=== PATIENT | female | born 1995 | race American Indian/Alaskan Native ===

== ENCOUNTER 2017-03-27 09:07 | Inpatient (IN) | payer MEDICAID, OTHER ==
[2017-03-27] MEDS ORDERED: LACTATED RINGERS 1,000 ML ONE ×2 (10:04→10:38)
--- NOTE | 2017-03-27 10:37 | History and Physical Report ---
History of Present Illness Date of examination: 03/27/17 Date of admission: 03/27/17 09:08 Chief complaint: contractions History of present illness: 22y/o @ 40+0 weeks presents in active labor with advanced cervical dilation of 8cm. She denies leakage of fluid. GBS negative. Past History Past Medical History: asthma Past Surgical History: no surgical history [employer] History: chlamydia Social history: single - Obstetrical History Expected Date of Delivery: 03/27/17 Actual Gestation: 40 Week(s) 0 Day(s) : 1 Para: 0 Hx # Term Pregnancies: 0 Number of Pregnancies: 0 Spontaneous Abortions: 0 Induced : 0 Number of Living Children: 0 Medications and Allergies Allergies Allergy/AdvReac Type Severity Reaction Status Date / Time No Known Allergies Allergy Verified 03/27/17 09:11 Home Medications Medication Instructions Recorded Confirmed Last Taken Type Vit-Fe Fumar-FA [ 1 tab PO QDAY 03/27/17 03/27/17 03/26/17 09: 00 History Vitamin] Review of Systems All systems: negative Genitourinary: pelvic pain, contractions, no leakage of fluid - Vital Signs Vital signs: Vital Signs Temp Resp 97.4 F L 20 03/27/17 09:14 03/27/17 09:14 Temp Pulse Resp BP Pulse Ox 97.4 F L 100 H 20 123/91 96 03/27/17 09:14 03/27/17 09:57 03/27/17 09:14 03/27/17 09:57 03/27/17 09:52 - Physical Exam Breasts: Positive: deferred Cardiovascular: Regular rate Lungs: Positive: Clear to auscultation Abdomen: Positive: normal appearance, soft Results Result Diagrams: 03/27/17 09:40 All other labs normal. Assessment and Plan - Patient Problems (1) Active labor at term Current Visit: Yes Status: Acute Plan to address problem: admit to L&D
[2017-03-27] MEDS ORDERED: LACTATED RINGERS 1,000 ML IV ONE (11:00)
[2017-03-27] MEDS ORDERED: SUBLIMAZE IV ONE (11:00)
[2017-03-27] MEDS ORDERED: SUBLIMAZE IV PRN (12:10)
[2017-03-27] MEDS ORDERED: NARCAN 2 MG/2 ML IV PRN (12:41)
[2017-03-27] MEDS ORDERED: ePHEDrine SULFATE IV PRN (12:41)
--- NOTE | 2017-03-27 12:41 | Anesthesia Consultation ---
Anesthesia Consult and Med Hx Date of service: 03/27/17 - Airway Anesthetic Teeth Evaluation: Good ROM Head & Neck: Adequate Mental/Hyoid Distance: Adequate Mallampati Class: Class II Intubation Access Assessment: Probably Good - Pulmonary Exam CTA: Yes - Cardiac Exam Cardiac Exam: RRR - Pre-Operative Health Status ASA Pre-Surgery Classification: ASA2 Proposed Anesthetic Plan: Epidural - Pulmonary Hx Asthma: Yes (albuteral PRN) COPD: No Hx Pneumonia: No - Cardiovascular System Hx Hypertension: No - Central Nervous System Hx Seizures: No Hx Psychiatric Problems: No - Endocrine Hx Renal Disease: No Hx End Stage Renal Disease: No Hx Hypothyroidism: No Hx Hyperthyroidism: No - Hematic Hx Anemia: No Hx Sickle Cell Disease: No
[2017-03-27 12:53] LABS: Basophils % (Auto) 0.5 % (0.0-1.8); Eosinophils % (Auto) 0.8 % (0.0-4.3); Hematocrit 36.9 % (30.3-42.9); Hemoglobin 12.3 gm/dl (10.1-14.3); Mean Corpuscular HGB Conc 33 % (30-34); Mean Corpuscular Hemoglobin 31 pg (28-32); Mean Corpuscular Volume 92 fl (79-97); Platelet Count 285 K/mm3 (140-440); Red Blood Count 4.03 M/mm3 (3.65-5.03); Red Cell Distribution Width 13.6 % (13.2-15.2); White Blood Count 10.7 K/mm3 (4.5-11.0)
[2017-03-27] MEDS ORDERED: PITOCin/NS 30 UNIT/500ML 30 UNITS/500 ML BAG IV SCH (13:00)
[2017-03-27] MEDS ORDERED: fentaNYL-BUPIV 2 MCG/ML-0.125% 200 MCG/100 ML BAG EPIDURAL SCH (13:00)
[2017-03-27] MEDS ORDERED: MINERAL OIL PO ONE (15:07)
[2017-03-27] MEDS ORDERED: MINERAL OIL ONE ×2 (15:07→17:10)
--- NOTE | 2017-03-27 15:48 | Procedure Note ---
OB Delivery Note - Delivery Date of Delivery: 03/27/17 Surgeon: JAMES PALACIOS Estimated blood loss: 200cc - Vaginal Delivery presentation: vertex Delivery position: OA Delivery induction: AROM Delivery augmentation: pitocin Delivery monitor: external FHT Route of delivery: Delivery placenta: spontaneous Delivery cord: 3 umbilical vessels Episiotomy: none Delivery laceration: 2nd degree Delivery repair: vicryl Anesthesia: epidural Delivery comments: Patient progressed to C/C/+1 and pushed to deliver a liveborn male with apgars of 8/9 and weight of 6lbs 3oz. After delivery of the head, the shoulders delivered easily. The cord was clamped and cut and infant was placed on the patient's abdomen. The placenta delivered spontaneously intact with a 3VC. The patient sustained a midline 2nd degree laceration repaired with 2-0 vicryl. EBL 200ml - A at 1 minute: 8 at 5 minutes: 9 Gender: Male (weight 6lbs 3oz)
[2017-03-27] MEDS ORDERED: PHENERGAN PR PRN (16:29)
[2017-03-27] MEDS ORDERED: TYLENOL PO PRN (16:29)
[2017-03-27] MEDS ORDERED: MILK OF MAGNESIA PO PRN (16:29)
[2017-03-27] MEDS ORDERED: TUCKS PAD TP PRN (16:29)
[2017-03-27] MEDS ORDERED: PHENERGAN PO PRN (16:29)
[2017-03-27] MEDS ORDERED: DULCOLAX PR PRN (16:29)
[2017-03-27] MEDS ORDERED: LANSINOH TP PRN (16:29)
[2017-03-27] MEDS ORDERED: BENADRYL PO PRN (16:29)
[2017-03-27] MEDS ORDERED: ZOFRAN IV PRN (16:29)
[2017-03-27] MEDS ORDERED: MINERAL OIL TOPICAL LIGHT TP PRN (16:53)
[2017-03-27] MEDS ORDERED: SODIUM CHLORIDE FLUSH SYRINGE 10 ML IV NR (17:00)
[2017-03-27] MEDS ORDERED: DERMOPLAST TP PRN (17:53)
[2017-03-27] MEDS: MOTRIN PO SCH ×2 (18:04→23:17)
[2017-03-28 05:22] LABS: Hematocrit 27.7 % (30.3-42.9); Hemoglobin 9.4 gm/dl (10.1-14.3)
[2017-03-28] MEDS: MOTRIN PO SCH ×4 (05:25→23:34)
--- NOTE | 2017-03-28 07:45 | Progress Note ---
Assessment and Plan A/P PPD#1 s/p doing well no complaints bleeding decreasing VSS H/H 12.3/36.9--9.4/27.7 d/c home tomorrow Subjective - Subjective Date of service: 03/28/17 Principal diagnosis: Patient reports: appetite normal, voiding normally, pain well controlled, flatus , ambulating normally : doing well, bottle feeding Objective - Vital Signs Latest vital signs: Vital Signs Temp Pulse Resp BP BP Pulse Ox 03/28/17 04:20 98.6 F 63 18 126/73 03/28/17 00:00 98.0 F 78 18 113/75 03/27/17 19:58 98.2 F 90 18 130/72 03/27/17 17:25 97.6 F 64 16 116/80 03/27/17 16:31 92 H 124/92 03/27/17 16:16 88 129/88 03/27/17 16:13 88 18 129/88 03/27/17 16:01 60 18 131/87 131/87 03/27/17 15:59 96 H 20 131/87 03/27/17 15:46 99 H 20 131/67 131/67 03/27/17 15:33 137 H 139/73 03/27/17 15:16 87 123/57 03/27/17 14:33 100 H 144/98 03/27/17 14:25 95 H 86 03/27/17 14:20 86 99 03/27/17 14:19 58 L 92 03/27/17 14:18 99 H 150/65 03/27/17 14:15 109 H 98 03/27/17 14:10 127 H 99 03/27/17 14:05 84 98 03/27/17 14:00 74 136/90 99 03/27/17 13:55 86 130/93 99 03/27/17 13:50 87 135/88 99 03/27/17 13:45 83 99 03/27/17 13:44 79 132/83 03/27/17 13:40 95 H 98 03/27/17 13:39 101 H 130/94 03/27/17 13:34 86 137/77 99 03/27/17 13:31 88 144/93 03/27/17 13:30 85 98 03/27/17 13:29 83 139/89 09/24/17 13:25 94 H 98 03/27/17 13:24 100 H 131/89 03/27/17 13:20 89 99 03/27/17 13:19 91 H 134/81 03/27/17 13:18 94 H 149/88 03/27/17 13:16 80 137/82 03/27/17 13:15 89 99 03/27/17 13:14 100 H 136/82 03/27/17 13:12 80 134/76 03/27/17 13:10 90 132/76 98 03/27/17 13:08 86 133/74 03/27/17 13:06 87 134/76 03/27/17 13:05 89 97 03/27/17 13:04 86 147/81 03/27/17 13:02 86 141/83 03/27/17 13:00 98 H 127/80 98 03/27/17 12:58 94 H 138/89 03/27/17 12:56 115 H 141/86 03/27/17 12:50 98.6 F 112 H 20 137/96 137/96 03/27/17 12:36 20 03/27/17 11:22 98.5 F 93 H 20 136/88 136/88 03/27/17 11:20 98.5 F 93 H 20 136/88 03/27/17 10:56 20 03/27/17 09:57 100 H 123/91 03/27/17 09:55 105 H 133/92 03/27/17 09:52 93 H 96 03/27/17 09:14 97.4 F L 20 Intake and Output 03/27/17 03/28/17 03/28/17 22:59 06:59 14:59 Output Total 700 Balance -700 Output: Urine 700 Indwelling Catheter 300 Void 400 Other: Total, Output Amount 400 Estimated Blood Loss 200 - Exam Breasts: Present: normal Cardiovascular: Present: Regular rate, Normal S1 Lungs: Present: Clear to auscultation, Normal air movement Abdomen: Present: normal appearance, soft, normal bowel sounds. Absent: distention, tenderness Vulva: both: normal Uterus: Present: normal, firm, fundal height below umbilicus. Absent: bogginess , tenderness Extremities: Present: normal Deep Tendon Reflex Grade: Normal +2 - Labs Labs: Abnormal lab results 03/27/17 03/28/17 Range/Units 09:40 04:24 Hgb 9.4 L (10.1-14.3) gm/dl Hct 27.7 L D (30.3-42.9) % Seg Neutrophils % 70.3 H (40.0-70.0) %
--- NOTE | 2017-03-28 07:49 | Discharge Summary ---
Providers - Providers Date of Admission: 03/27/17 09:08 Date of discharge: 03/29/17 Attending physician: JAMES PALACIOS Primary care physician: JAMES PALACIOS Hospitalization Reason for admission: active labor Delivery: Episiotomy: none Laceration: 2nd degree Incision: normal Other procedures: none complications: none Discharge diagnosis: IUP at term delivered baby: male Hospital course: Patient did well. Delivered a viable mael . sustained a 2nd degree laceration. PP course unremarkable. d/c home with f/u in 4 weeks. Anemia on iron tabs. unsure of control. Condition at discharge: Good Disposition: DC-01 TO HOME OR SELFCARE Plan - Discharge Medications Prescriptions: Ferrous Sulfate [Feosol 325 MG tab] 325 mg PO BID #30 tablet Ibuprofen [Motrin] 600 mg PO Q8H PRN #30 tablet PRN Reason: Pain oxyCODONE /ACETAMINOPHEN [Percocet 5/325] 1 tab PO Q6HR PRN #30 tablet PRN Reason: Pain - Provider Discharge Summary Activity: routine, no sex for 6 weeks Diet: routine Instructions: routine Additional instructions: [] Smoking cessation referral if applicable(refer to patient education folder for contact #) [] Refer to [facility]'s [facility] Booklet Call your doctor immediately for: * Fever > 100.5 * Heavy vaginal bleeding ( >1 pad per hour) * Severe persistent headache * Shortness of breath * Reddened, hot, painful area to leg or breast * Drainage or odor from incision. * Keep incision clean and dry at all times and follow doctor's instructions regarding bathing/showering - Follow up plan Follow up: JAMES PALACIOS MD [Primary Care Provider] - 04/19/17
[2017-03-28] MEDS ORDERED: PERCOCET 5/325 PO PRN (10:00)
[2017-03-28] MEDS: FEOSOL PO SCH ×2 (10:32→23:34)
--- NOTE | 2017-03-28 10:54 | Progress Note ---
Subjective Date of service: 03/28/17 Principal diagnosis: Interval history: 1st day after normal vaginal delivery Patient is in the bed, comfortable. Pain is well controlled with pain meds. Ambulated well. No residual neurological deficit. No anesthesia complications Objective - Constitutional Vitals: Vital Signs - 12hr 03/28/17 03/28/17 03/28/17 00:00 04:20 08:05 Temperature 98.0 F 98.6 F 98.1 F Pulse Rate 78 63 72 Respiratory 18 18 16 Rate Blood Pressure 113/75 126/73 [Left] Blood Pressure 130/88 [Right] 03/28/17 10:33 Temperature Pulse Rate Respiratory 20 Rate Blood Pressure [Left] Blood Pressure [Right] - Labs CBC & Chem 7: 03/28/17 04:24 Labs: Abnormal lab results 03/27/17 03/28/17 Range/Units 09:40 04:24 Hgb 9.4 L (10.1-14.3) gm/dl Hct 27.7 L D (30.3-42.9) % Seg Neutrophils % 70.3 H (40.0-70.0) %
[2017-03-29] MEDS: MOTRIN PO SCH (05:18)
[2017-03-29] MEDS: FEOSOL PO SCH (11:02)
[2017-03-29 14:50] VITALS: BP 114/78
== END 2017-03-29 12:15 | disposition home or self-care (01) | DRG 775 ==
LOC: TRG 09:07 → LD 09:08 → OB 17:15
PROVIDERS: ADMIT Obstetrics & Gynecology; ATTEND Obstetrics & Gynecology
PROC: 10E0XZZ Delivery of Products of Conception, External Approach (ICD-10-PCS; principal; 2017-03-27)
PROC: 0KQM0ZZ Repair Perineum Muscle, Open Approach (ICD-10-PCS; 2017-03-27)
PROC: 10907ZC Drainage of Amniotic Fluid, Therapeutic from Products of Conception, Via Natural or Artificial Opening (ICD-10-PCS; 2017-03-27)
PROC: 3E0S3CZ (ICD-10-PCS; 2017-03-27)
PROC: 00HU33Z Insertion of Infusion Device into Spinal Canal, Percutaneous Approach (ICD-10-PCS; 2017-03-27)
DX: O99.52 Diseases of the respiratory system complicating childbirth (principal); J45.909 Unspecified asthma, uncomplicated; O75.5 Delayed delivery after artificial rupture of membranes; Z3A.40 40 weeks gestation of pregnancy; Z37.0 Single live birth; O70.1 Second degree perineal laceration during delivery; O99.03 Anemia complicating the puerperium; D64.9 Anemia, unspecified
CPT/HCPCS: 36415; 59025; 85014; 85018; 85025; 86850; 86900; 86901; J2590; J3010; J7120